=== PATIENT | male | born 1975 | race Caucasian/White ===

== ENCOUNTER 2016-09-10 20:18 | Emergency (ER) | payer SELFPAY | END 2016-09-10 20:40 | disposition home or self-care (01) | LOC: ER 20:18 | PROC: 0H91XZZ Drainage of Face Skin, External Approach (ICD-10-PCS; principal; 2016-09-10) | DX: L02.01 Cutaneous abscess of face (principal); F17.200 Nicotine dependence, unspecified, uncomplicated; F41.9 Anxiety disorder, unspecified | CPT/HCPCS: 99283; A9270-GY ==